=== PATIENT | female | born 1980 | race Caucasian/White ===

== ENCOUNTER 2024-07-18 21:49 | Inpatient (IN) | payer OTHER, SELFPAY ==
[2024-07-18 15:31] VITALS: BP 141/94
[2024-07-18] MEDS: TYLENOL 1000 MG PO (15:41)
[2024-07-18 16:17] LABS: % Basophils 0.5 % (0-2); % Eosinophils 2.7 % (0-6); % Lymphocytes 15.5 % (20.5-51.1); % Monocytes 4.6 % (1.7-9.3); % Neutrophils 75.7 % (42.2-75.2); Absolute Basophils 0.1 10^3/uL (0-0.2); Absolute Eosinophils 0.3 10^3/uL (0-0.7); Absolute Immature Granulocytes 0.1 10^3/uL (0-0.05); Absolute Lymphocytes 1.4 10^3/uL (1.2-3.4); Absolute Monocytes 0.4 10^3/uL (0.1-0.6); Absolute Neutrophils 7.1 10^3/uL (1.4-6.5); Hemoglobin 12.9 g/dL (12.0-16.0); Mean Corp Hgb Conc. 33.1 g/dL (33.0-37.0); Mean Corpuscular Volume 84.8 fL (81.0-99.0); Nucleated Red Blood Cells % 0 %; Platelet Count 309 10^3/uL (130-400); White Blood Cell Count 9.3 10^3/uL (4.8-10.8)
[2024-07-18 16:26] LABS: Lactic Acid 1.8 mmol/L (0.7-2.0)
[2024-07-18 16:28] LABS: ALT (SGPT) 30 U/L (0-35); AST (SGOT) 26 U/L (14-36); Alkaline Phosphatase 100 U/L (38-126); Blood Urea Nitrogen 12 mg/dl (7-17); Carbon Dioxide 30 mmol/L (22-30); Chloride 91 mmol/L (98-107); Glucose 135 mg/dl (70-99); Potassium 3.3 mmol/L (3.5-5.1); Sodium 131 mmol/L (135-145); Total Bilirubin 0.4 mg/dl (0.2-1.3); Total Protein 7.4 g/dl (6.3-8.2); eGFR > 60.00
[2024-07-18 17:42] VITALS: BMI 48.3
--- NOTE | 2024-07-18 17:58 | ED.GENMED ---
History of Present Illness
<Felisha Tyler NP - Last Filed: 07/18/24 22:46>
General
Chief Complaint: Fever
Source: patient
Exam Limitations: none
Time Seen by Provider: 07/18/24 17:35
Nursing documentation reviewed up to this point in time: agreed with
History of Present Illness
History of Present Illness:
Patient to ED with complaint of fever, headache, neck tightness, low back pain. States she had a dental extraction and bone grafting on . she developed a migraine like headache, pressure behind her eyes. Yesterday fever started.
Reports temp as high as 103. She was placed on amoxicillin after procedure. She was seen in ED in 2012 for similar event. Symptoms at that time followed dental extractions. Diagnosed with meningitis - thought to be viral. Brought to ED tonight
by spouse.
Past History
<Felisha Tyler NP - Last Filed: 07/18/24 22:46>
Past History
ED Past Medical History: Asthma and Other (Murmur, Bronchitis); Negative HTN, Hypercholesterolemia or NIDDM
ED Past Surgical History: (X3)
Social History
Tobacco: Non-smoker
Alcohol: None
Drug: None
Personal:
Living: with family
Employment: Employed
Family History
Family History: Other (Noncontributory)
Review of Systems
<Felisha Tyler NP - Last Filed: 07/18/24 22:46>
Review of Systems
Allergies reviewed?: Yes
All Other Systems: ROS reviewed and negative except as documented in HPI and ROS
Constitutional: Reports fever and fatigue
EENT: Reports other (Dental extraction left upper central incisor with bone grafting.)
Respiratory: Reports no symptoms
Cardiac: Reports no symptoms
ABD/GI: Reports no symptoms
: Reports no symptoms
Musculoskeletal: Reports neck pain and back pain
Skin: Reports no symptoms
Neurological: Reports dizzy, headache and weakness
Psychiatric: Reports no symptoms
Phy Exam
<Felisha Tyler NP - Last Filed: 07/18/24 22:46>
General Physical Exam
General Presentation: well appearing and no apparent distress
General age: appears stated age
General Skin: warm and dry
General Habitus: normal
General Mental: alert
General Hydration: appears well hydrated
ENT Exam
ENT Exam: EOMI, TM's normal, pharynx normal, neck supple and swallowing well
Eye Exam
Eye Exam: PERRL, EOMI, conjunctiva normal and globe normal
Cardiovascular Exam
Cardiovascular Exam: regular rate/rhythm and no edema
Pulmonary Exam
Pulmonary Exam: lungs clear, no respiratory distress and chest non tender
Gastrointestinal Exam
Gastrointestinal Exam: normal bowel sounds, non tender, soft and no organomegaly
Neurological Exam
Neurological Exam: alert, oriented x3, CN II-XII intact, no motor deficits, no sensory deficits, speech normal and normal gait
Musculoskeletal Exam
Musculoskeletal Exam: full ROM, neuro vasc intact and other (Reports neck tightness with rotation )
Skin Exam
Skin Exam: normal color, warm/dry, no rash and no petechia
Psychiatric Exam
Psychiatric Exam: normal mood/affect
Sepsis
<Felisha Tyler NP - Last Filed: 07/18/24 22:46>
Sepsis Screening
Sepsis Assessment: Sepsis Ruled Out
Sepsis Screen
Sepsis Screen: Sepsis Ruled Out
Date: 07/18/24
Time: 22:45
<Nancy Smith MD - Last Filed: 07/19/24 12:44>
Sepsis Screen
Sepsis Screen: Sepsis Ruled Out
Date: 07/19/24
Time: 12:43
Course
<Felisha Tyler, INTEGRATED MARKETING MANAGER - Last Filed: 07/18/24 22:46>
Orders/Labs/Results
Orders:
Orders
07/18/24 Breakfast
Cholesterol Lowering
At Your Request: Full Participation
Cholesterol Lowering: Sodium, 2 Gram
07/18/24 15:36
Electrocardiogram (*1) Urgent
Reason for Study: Other
Other Reason for Exam: Possible Sepsis
Cardiac Monitoring- Treatment ONCE
EKG- Treatment ONCE
IV Insert/Care/Rem.- Treatment PRN
O2 Therapy [RESP] Urgent
Titrate/Wean O2 to maintain O2 sat greater than (%): 93
Special Instructions: TO MAINTAIN CONTINUOUS O2 SATS > OR = 93%
Pulse Ox/cont/shift [RESP] Urgent
Quantity: 1
Special Instructions: CONTINUOUS
07/18/24 15:39
Acetaminophen [Tylenol] 1,000 mg .ROUTE .STK-MED ONE
07/18/24 15:41
Acetaminophen [Tylenol] 1,000 mg PO NOW STA
07/18/24 15:56
C-Reactive Protein Urgent
Comment: ADD ON
Complete Blood Count/With Diff Urgent
Comprehensive Metabolic Panel Urgent
Erythrocyte Sed Rate Urgent
Comment: ADD ON
HCG, Serum Qualitative Screen Urgent
Comment: ADD ON
Lactic Acid Q4H
Comment: ON ICE, CANCEL 2ND ORDER IF FIRST LACTIC ACID LEVEL <2
Blood Culture Urgent
SATHISH Source: Blood/Venous
Specimen Description:
07/18/24 17:43
Urinalysis Reflex To Culture Urgent
Date Specimen was Collected: 07/18/24
Time Specimen was Collected: 17:38
Urine Microscopic Reflex Cult Urgent
Influenza A+B Rapid Molecular Urgent
SATHISH Source: Nasal Swab
Specimen Description:
07/18/24 17:44
Add On- LAB Urgent
Tests Added?: sed rate, CRP
07/18/24 17:58
0.9% Sodium Chloride 1000 ml [Nss] 1,000 ml IV BOLUS
Ketorolac [Toradol] 30 mg IV NOW STA
Ondansetron Injectable [Zofran] 4 mg IV NOW STA
07/18/24 18:02
CT Head W/o Iv Contrast Urgent
Comment:
Reason For Exam: headache, neck pain, fever.
07/18/24 18:03
Add On- LAB Urgent
Tests Added?: HCG serum qualitative
07/18/24 18:29
COVID-19 Antigen Urgent
07/18/24 18:57
Lorazepam [Ativan] 1 mg IV NOW STA
07/18/24 20:49
CefTRIAXone [Rocephin] 1,000 mg IV NOW STA
07/18/24 21:14
Vancomycin [Vancocin] 2,000 mg 0.9% Sodium Chloride 500 ml [Nss] 500 ml IV NOW
07/18/24 21:33
Potassium Chloride [KCl] 40 meq PO NOW STA
07/18/24 21:35
Admit/Transfer Patient As Directed
Co-Sign Provider:
Level of Care: Inpatient admission
Assign to:: Medical/Surgical
Physician / Group: willy
Diagnosis: fever r/o meningitis
Reason for Hospitalization: fever r/o meningitis
Expected length of stay greater than two midnights?: Yes
ELOS- Estimated Length of Stay in days: 3
I certify the patient meets the requirements for IP care: Yes
PRN Pain Medication Management As Directed
May give lesser potent ordered pain med per pt: Yes
preference::
Protocol:: Medication orders for pain may be administered in a
manner that supports deferring to patient preference
when the pt is:
- Requesting an ordered lesser potent pain medication.
Least to most potent pain medications are defined
as: acetaminophen < NSAID < tramadol < opioids
(morphine, oxycodone, hydromorphone).
- Requesting a lesser dose of the same medication IF
ORDERED.
- Requesting a less intrusive route of administration
if both routes are prescribed by the provider (PO <
IV).
07/18/24 21:36
Code Status As Directed
Resuscitation Status: Full Code
07/18/24 21:38
IRAD CONSULT Routine
Consulting Provider: Yovany Guo
Was physician already notified: Yes
Reason for Consult/Procedure: LP
Acknowledgement that appropriate orders are entered: Yes
07/18/24 22:00
Flush (0.9% Sodium Chloride) [Flush (Nss)] See Dose Instructions IV PER PROTOCOL
07/18/24 22:26
Acetaminophen [Tylenol] 650 mg PO Q4HPRN PRN
Bisacodyl [Dulcolax] 10 mg RECTAL [id number] PRN
Docusate W/Senna [Senokot-S] 1 tablet PO BIDPRN PRN
Polyethylene Glycol Powder [Miralax] 17 grams PO DAILYPRN PRN
norethindrone (contraceptive) See Dose Instructions PO HS
07/18/24 22:26
Meningitis Panel, CSF by PCR Routine
SATHISH Source: Csf
Specimen Description:
Activity As Directed
Activity Level: As Tolerated
Pneumatic Compression Sleeves As Directed
Type: Knee high
Vital Signs As Directed
Frequency: Per unit guidelines
DX Deep Vein Thrombosis Video Routine
07/19/24 06:01
Basic Metabolic Panel IN AM
07/19/24 08:00
Sertraline HCl [Zoloft] 50 mg PO DAILY
07/19/24 22:00
CefTRIAXone [Rocephin] 1,000 mg IV Q24H
07/20/24 06:00
Basic Metabolic Panel IN AM
07/21/24 06:00
Basic Metabolic Panel IN AM
Abnormal Lab Results
07/18/24 07/18/24
15:56 17:43
Abs Immat Gran (auto) 0.1 H 10^3/uL
(0-0.05)
Absolute Neuts (auto) 7.1 H 10^3/uL
(1.4-6.5)
Immature Gran % 1.0 H %
(0-0.5)
Neutrophils % 75.7 H %
(42.2-75.2)
Lymphocytes % 15.5 L %
(20.5-51.1)
ESR 48 H mm/hour
(0-20)
Sodium 131 L mmol/L
(135-145)
Potassium 3.3 L mmol/L
(3.5-5.1)
Chloride 91 L mmol/L
(98-107)
Glucose 135 H mg/dl
(70-99)
C-Reactive Protein 64.20 H mg/L
(0.0-10.00)
Leukocyte Esterase Rfl Trace A
(Negative)
07/18/24 15:56
07/18/24 15:56
Vital Signs
Initial and Last Documented VS:
Initial Vital Signs
Temp Pulse Resp BP Pulse Ox
103 F H 90 18 141/94 100
07/18/24 15:31 07/18/24 15:31 07/18/24 15:31 07/18/24 15:31 07/18/24 15:31
Last Documented Vital Signs
Temp Pulse Resp BP Pulse Ox
98.7 F 75 16 147/81 95
07/19/24 12:00 07/19/24 11:10 07/19/24 11:10 07/19/24 11:10 07/19/24 10:30
<Nancy Smith MD - Last Filed: 07/19/24 12:44>
Orders/Labs/Results
Orders:
Orders
07/18/24 Breakfast
Cholesterol Lowering
At Your Request: Full Participation
Cholesterol Lowering: Sodium, 2 Gram
07/18/24 15:36
Electrocardiogram (*1) Urgent
Reason for Study: Other
Other Reason for Exam: Possible Sepsis
Cardiac Monitoring- Treatment ONCE
EKG- Treatment ONCE
IV Insert/Care/Rem.- Treatment PRN
O2 Therapy [RESP] Urgent
Titrate/Wean O2 to maintain O2 sat greater than (%): 93
Special Instructions: TO MAINTAIN CONTINUOUS O2 SATS > OR = 93%
Pulse Ox/cont/shift [RESP] Urgent
Quantity: 1
Special Instructions: CONTINUOUS
07/18/24 15:39
Acetaminophen [Tylenol] 1,000 mg .ROUTE .STK-MED ONE
07/18/24 15:41
Acetaminophen [Tylenol] 1,000 mg PO NOW STA
07/18/24 15:56
C-Reactive Protein Urgent
Comment: ADD ON
Complete Blood Count/With Diff Urgent
Comprehensive Metabolic Panel Urgent
Erythrocyte Sed Rate Urgent
Comment: ADD ON
HCG, Serum Qualitative Screen Urgent
Comment: ADD ON
Lactic Acid Q4H
Comment: ON ICE, CANCEL 2ND ORDER IF FIRST LACTIC ACID LEVEL <2
Blood Culture Urgent
SATHISH Source: Blood/Venous
Specimen Description:
07/18/24 17:43
Urinalysis Reflex To Culture Urgent
Date Specimen was Collected: 07/18/24
Time Specimen was Collected: 17:38
Urine Microscopic Reflex Cult Urgent
Influenza A+B Rapid Molecular Urgent
SATHISH Source: Nasal Swab
Specimen Description:
07/18/24 17:44
Add On- LAB Urgent
Tests Added?: sed rate, CRP
07/18/24 17:58
0.9% Sodium Chloride 1000 ml [Nss] 1,000 ml IV BOLUS
Ketorolac [Toradol] 30 mg IV NOW STA
Ondansetron Injectable [Zofran] 4 mg IV NOW STA
07/18/24 18:02
CT Head W/o Iv Contrast Urgent
Comment:
Reason For Exam: headache, neck pain, fever.
07/18/24 18:03
Add On- LAB Urgent
Tests Added?: HCG serum qualitative
07/18/24 18:29
COVID-19 Antigen Urgent
07/18/24 18:57
Lorazepam [Ativan] 1 mg IV NOW STA
07/18/24 20:49
CefTRIAXone [Rocephin] 1,000 mg IV NOW STA
07/18/24 21:14
Vancomycin [Vancocin] 2,000 mg 0.9% Sodium Chloride 500 ml [Nss] 500 ml IV NOW
07/18/24 21:33
Potassium Chloride [KCl] 40 meq PO NOW STA
07/18/24 21:35
Admit/Transfer Patient As Directed
Co-Sign Provider:
Level of Care: Inpatient admission
Assign to:: Medical/Surgical
Physician / Group: willy
Diagnosis: fever r/o meningitis
Reason for Hospitalization: fever r/o meningitis
Expected length of stay greater than two midnights?: Yes
ELOS- Estimated Length of Stay in days: 3
I certify the patient meets the requirements for IP care: Yes
PRN Pain Medication Management As Directed
May give lesser potent ordered pain med per pt: Yes
preference::
Protocol:: Medication orders for pain may be administered in a
manner that supports deferring to patient preference
when the pt is:
- Requesting an ordered lesser potent pain medication.
Least to most potent pain medications are defined
as: acetaminophen < NSAID < tramadol < opioids
(morphine, oxycodone, hydromorphone).
- Requesting a lesser dose of the same medication IF
ORDERED.
- Requesting a less intrusive route of administration
if both routes are prescribed by the provider (PO <
IV).
07/18/24 21:36
Code Status As Directed
Resuscitation Status: Full Code
07/18/24 21:38
IRAD CONSULT Routine
Consulting Provider: Yovany Guo
Was physician already notified: Yes
Reason for Consult/Procedure: LP
Acknowledgement that appropriate orders are entered: Yes
07/18/24 22:00
Flush (0.9% Sodium Chloride) [Flush (Nss)] See Dose Instructions IV PER PROTOCOL
07/18/24 22:26
Acetaminophen [Tylenol] 650 mg PO Q4HPRN PRN
Bisacodyl [Dulcolax] 10 mg RECTAL [id number] PRN
Docusate W/Senna [Senokot-S] 1 tablet PO BIDPRN PRN
Polyethylene Glycol Powder [Miralax] 17 grams PO DAILYPRN PRN
norethindrone (contraceptive) See Dose Instructions PO HS
07/18/24 22:26
Meningitis Panel, CSF by PCR Routine
SATHISH Source: Csf
Specimen Description:
Activity As Directed
Activity Level: As Tolerated
Pneumatic Compression Sleeves As Directed
Type: Knee high
Vital Signs As Directed
Frequency: Per unit guidelines
DX Deep Vein Thrombosis Video Routine
07/19/24 06:01
Basic Metabolic Panel IN AM
07/19/24 08:00
Sertraline HCl [Zoloft] 50 mg PO DAILY
07/19/24 22:00
CefTRIAXone [Rocephin] 1,000 mg IV Q24H
07/20/24 06:00
Basic Metabolic Panel IN AM
07/21/24 06:00
Basic Metabolic Panel IN AM
Abnormal Lab Results
07/18/24 07/18/24
15:56 17:43
Abs Immat Gran (auto) 0.1 H 10^3/uL
(0-0.05)
Absolute Neuts (auto) 7.1 H 10^3/uL
(1.4-6.5)
Immature Gran % 1.0 H %
(0-0.5)
Neutrophils % 75.7 H %
(42.2-75.2)
Lymphocytes % 15.5 L %
(20.5-51.1)
ESR 48 H mm/hour
(0-20)
Sodium 131 L mmol/L
(135-145)
Potassium 3.3 L mmol/L
(3.5-5.1)
Chloride 91 L mmol/L
(98-107)
Glucose 135 H mg/dl
(70-99)
C-Reactive Protein 64.20 H mg/L
(0.0-10.00)
Leukocyte Esterase Rfl Trace A
(Negative)
07/18/24 15:56
07/18/24 15:56
Vital Signs
Initial and Last Documented VS:
Initial Vital Signs
Temp Pulse Resp BP Pulse Ox
103 F H 90 18 141/94 100
07/18/24 15:31 07/18/24 15:31 07/18/24 15:31 07/18/24 15:31 07/18/24 15:31
Last Documented Vital Signs
Temp Pulse Resp BP Pulse Ox
98.7 F 75 16 147/81 95
07/19/24 12:00 07/19/24 11:10 07/19/24 11:10 07/19/24 11:10 07/19/24 10:30
<Felisha Tyler INTEGRATED MARKETING MANAGER - Last Filed: 07/18/24 22:46>
*Radiology
Radiology exam reviewed: radiology read reviewed
*Pulse Oximetry
Patient hypoxic: no
*Critical Care Note
Total Time (30-74mins, 75-104mins- exclusive of procedures): Not Applicable
<Felisha Tyler NP - Last Filed: 07/18/24 22:46>
Update Note
Update Note:
Patient to ED with complaint of fever, headache, fatigue. Had dental extraction with bone grafting this week. Symptoms began 2 days after. SHe is currently prescribed amoxicillin prophylactically for her dental procedure. SHe had a similar event
in 2012 after dental extraction. Admitted here for meningitis, however thought to be viral. Has had no issues since. Labs, CT, exam results reviewed with Dr. Smith who also evaluated this patient. CT reveals Chiari Malformation. Neurology
recommends holding off on LP. Recommends admission tonight with brain MRI in AM followed by LP at that time. Will admit to hospitalists service. Antibiotics started in dept.
ED Attending Note
<Felisha Tyler NP - Last Filed: 07/18/24 22:46>
-
Portions of this chart may have been created with voice recognition software.� Occasional wrong word or��sound alike� substitutions may have occurred due to the inherent limitations of voice recognition software.
<Nancy Smith MD - Last Filed: 07/19/24 12:44>
ED Attending Note
Patient seen and examined by attending physician: Yes
I performed the substantive portion of visit, reviewed & personally made and approve the management plan that is documented in note by myself or WILLIAN.: Yes
ED Attending Note:
43-year-old female states that she had a tooth extraction on Saturday, started on amoxicillin. On she developed a headache, and then yesterday she developed an associated fever. She describes continued fever, headache, neck pain,
dizziness. She also has bodyaches. She denies photophobia, numbness, tingling, trouble swallowing, mouth pain, chest pain, shortness of breath. Patient states symptoms today are similar to when she was diagnosed with viral meningitis 11 years ago
status post tooth extraction. On exam, patient is tired appearing but pleasant and awake. No objective photophobia noted. Oropharynx exam normal. Tooth #9 extraction site without secondary infection. Patient is able to flex and extend neck but
reports pain while doing. Given fever, headache neck pain and similar symptoms, recommends LP. Discussed with patient risks and benefits and she is in agreement.
8:[address] shows 'cerebellar tonsillar ectopia'. I have been in discussions with neurology and radiology to help determine if this is a potential contraindication to an LP.Neurologist states that cerebellar tonsillar ectopia suggest low CSF which
increases the risk of herniation. She recommends that we treat clinically i.e. give antibiotics, and ultimately obtain an MRI, LP via IR. We will start antibiotics now and make arrangements for admission and continued care.
Discharge Plan
Departure
Patient Disposition: Admit
Date of Disposition: 07/18/24
Time of Disposition: 20:57
Presentation/result/management discussed w/ accepting MD/DO: Hospitalist
Condition: Fair
Covid-19: Not Applicable
Discharge Problem:
Fever, Headache
Interventions
Interventions:
*Risk Screen - Suicide Last Done: 07/18/24 15:31
*General Assessment Last Done: 07/18/24 15:31
*Neglect/Abuse Screening Last Done: 07/18/24 15:31
ED- Fall Risk Assessment Last Done: 07/18/24 17:25
*ED COVID-19 Vaccine History Last Done: 07/18/24 17:40
*Nursing Disposition Last Done: 07/18/24 22:24
ED- Neurological Assessment Last Done: 07/18/24 17:41
ED-Skin Assessment Last Done: 07/18/24 17:43
Discharge Date and Time
Discharge Date/Time: 07/18/24 22:25
[2024-07-18] MEDS: NSS 1000 IV (18:17)
[2024-07-18] MEDS: ZOFRAN 4 MG IV (18:18)
[2024-07-18] MEDS: TORADOL 30 MG IV (18:18)
[2024-07-18 18:21] VITALS: BP 125/74
[2024-07-18 18:21] LABS: Erythrocyte Sed Rate 48 mm/hour (0-20)
[2024-07-18 18:22] LABS: HCG, Serum Qualitative Screen Negative
[2024-07-18 18:49] LABS: COVID-19 Antigen Negative (Negative)
[2024-07-18 19:00] VITALS: BP 116/69
[2024-07-18] MEDS: ATIVAN 1 MG IV (19:27)
[2024-07-18 20:00] VITALS: BP 128/81
[2024-07-18 21:00] VITALS: BP 128/76
--- NOTE | 2024-07-18 21:07 | HPS.HSE ---
Family Physician
-
Family Physician: Rachel Oliveros
Chief Complaint
-
fever
SANDOVAL
History of Present Illness
43 year old with PMH for HTN, depression presented to us with fever, headache, neck tightness, low back pain. States she had a dental extraction and bone grafting on . she developed a migraine like headache, pressure behind her eyes.
Yesterday fever started. Reports temp as high as 103. She was placed on amoxicillin after procedure. denied congestion, cough. denied chest pain, sob. denied abdominal pain,n,v,d. denied dysuria or hematuria. patient has hxt of viral meningitis
after the dental procedure in 2012.
Patient received ceftriaxone and vancomycin in ER. Admitting for further management
Medical History
Past Medical History
Past Medical History: Reports Other
Additional Past Medical History:
Hypertension
Anxiety
Asthma
Past Surgical History: Reports Other
Additional Past Surgical History:
Cholecystectomy
Social History
Tobacco: Non-smoker
Alcohol: None
Drug: None
Personal:
Living: With Family
Family History
Family History: Not pertinent
Allergies / Home Medications
Allergies reflects when Allergies were last updated in [facility].
Home Medications with original date entered in [facility]
Allergy/Medication List:
Allergies
Allergy/AdvReac Type Severity Reaction Status Date / Time
No Known Allergies Allergy Verified 07/18/24 15:31
Home Medications
calcium 1 tab PO DAILY 08/23/22
hydrochlorothiazide 25 mg tablet 25 mg PO DAILY 08/23/22
multivitamin 1 tab PO DAILY 08/23/22
norethindrone (contraceptive) 0.35 mg tablet 0.35 mg PO HS 08/23/22
sertraline 50 mg tablet (Zoloft) 50 mg PO DAILY 08/23/22
oxycodone 5 mg tablet 5 mg PO Q4HPRN PRN breakthrough/severe pain #15 tabs 08/29/22
Review of Systems
-
Constitutional: Reports Fever and Chills
EENT: Reports No Symptoms
Respiratory: Reports No Symptoms
Cardiac: Reports No Symptoms
Abdomen/GI: Reports No Symptoms
: Reports No Symptoms
Musculoskeletal: Reports No Symptoms
Skin: Reports No Symptoms
Neurological: Reports Headache
Endocrine: Reports No Symptoms
Hematologic/Lymphatic: Reports No Symptoms
Psych: Reports No Symptoms
Physical Exam
Vital Signs
Vital Signs
Temp Pulse Resp BP Pulse Ox
103 F H 85 22 128/81 96
07/18/24 15:31 07/18/24 20:15 07/18/24 20:15 07/18/24 20:00 07/18/24 20:15
Physical Exam
General: Well Developed, Well Nourished and No Apparent Distress
HEENT: NormoCephalic, Moist mucous membranes and Atraumatic
Respiratory: Clear
Cardiac: S1/S2 and Regular Rhythm; No Murmur or Rub
GI: Soft, Non Tender, Non Distended and Normal Bowel Sounds; No Organomegaly
Rectal: Deferred by Provider
Musculoskeletal: No Clubbing, No Cyanosis and No Edema
Skin: No Rash
Neuro: AO x 3 and Nonfocal/grossly intact
Psych: Calm
Laboratory Results
-
07/18/24 15:56
07/18/24 15:56
Laboratory Results
Lactic Acid 1.8 mmol/L (0.7-2.0) 07/18/24 15:56
Total Bilirubin 0.4 mg/dl (0.2-1.3) 07/18/24 15:56
AST 26 U/L (14-36) 07/18/24 15:56
ALT 30 U/L (0-35) 07/18/24 15:56
Alkaline Phosphatase 100 U/L (38-126) 07/18/24 15:56
Data Reviewed
-
CT Scan: Report Reviewed by me
Lab Data: Labs Reviewed by me
Impression/Plan
-
#Headache r/o Meningitis
-obtain MRI
-IR consulted for LP tomorrow
-ESR 48,CRp 64.20
-head CT with Cerebellar tonsillar ectopia.
-COVID/flu negative
-Blood culture sent from ER
-iV ceftriaxone and vano continued
-neurology consulted
#hyponatremia/Hypokalemia likely from hctz
-na 131, k 3.3
-replated with kcl, received normal saline in ER
-BMP in am
-hold hctz
#essential HTN
-ctm
#depression
-sertraline continued
#DVT Prophylaxis
-scd
#CODE status
-full code
[2024-07-18] MEDS: ROCEPHIN 1000 MG IV (21:24)
[2024-07-18] MEDS: VANCOCIN 540 MG IV (21:24)
--- NOTE | 2024-07-18 21:34 | W.PN.UPDATE ---
Update Note
Progress Note Update
Patient seen in conjunction with MIGEL. I concur with findings on history and physical. I agree with the assessment and plan as stated.
This is a 43-year-old female was past medical history significant for hypertension, anxiety, asthma and obesity who presents to the emergency department a few days status post extraction of left upper incisors with a fever and headache.
Patient denies any symptoms prior to the procedure. She reported that the day following the procedure she started having a headache that she describes to be in the back of her head radiating to her neck and down to lower back. She also reports
headache in the peritoneal and temporal areas and in the back of her eyes. The following day she started having fevers chills and sweats. She reports worsening pain with neck movement. She reports mild nausea but no vomiting. Patient denies
having any sore throat. She denies any recent cough cold or flulike symptoms. She denies any shortness of breath or dyspnea on exertion. She denies any urinary symptoms. She is able to ambulate without worsening pain. Patient denies any other
recent travels, procedures. She reports sick contacts with children with URI symptoms. She has been on amoxicillin for the procedure. She reported that she had a fractured tooth that was extracted without any evidence of abscess. She denies any
swelling or pain and mild.
Patient denies any rash.
In the emergency department patient was febrile to 103, she was normotensive at 128/80 with a pulse of 55. She was satting 96% on room air. CT of the head shows no acute intracranial process. COVID test was negative. Influenza was negative. CBC
was unremarkable. Electrolytes and BUN/creatinine were also unremarkable. Sodium was 131. She had mildly elevated ESR and moderately elevated CRP 264.
On my examination she was alert and oriented x 3, no focal neurological deficits, no signs of encephalopathy. There was no nuchal rigidity, negative chronic low presents K. She had no focal tenderness in her neck or spine. Oral cavity shows no
abscess drainage erythema or exudate. Neck was supple and there was no significant adenopathy. Lungs were clear to auscultation. There was no cardiac murmur.
Assessment and plan
Patient with very high fever status post with extraction complicated by headache with concern for meningitis. Patient had a similar episode about 12 years ago with headache and fever status post 2 dental procedure requiring LP at that time. She
was found to have a viral meningitis. Neurology consulted.
1. Fever - Source unknown with concern for meningitis. No unusual risk factors.
- admit to med/surg
- mri in am
- IR consult for LP - OP, CSF analysis for glucose, protein, cell count, gm stain, culture and viral pcr
- blood cultures sent
- u/a and urine culture
- neurology consult
- ID consultation
- empiric abx, not immunocompromised, age < 50, start IV Vanc/Ceftriaxone.
DVT PPX - heparin sq
Code status - full code
[2024-07-18] MEDS: KCL 40 MEQ PO (21:37)
[2024-07-18 21:47] LABS: Urine Albumin Trace (Neg - Trace); Urine Bilirubin Negative (Negative); Urine Character Clear (Clear); Urine Color Yellow; Urine Glucose Negative (Negative); Urine Ketone Negative (Negative); Urine Leukocyte Trace (Negative); Urine Nitrite Negative (Negative); Urine Occult Blood Negative (Negative); Urine Urobilinogen Negative (Neg - 1+)
[2024-07-18 22:15] LABS: Urine Red Blood Cell 0-2 /HPF (0-2)
[2024-07-18] MEDS: TYLENOL 650 MG PO (22:50)
[2024-07-18 22:54] VITALS: BP 139/85
--- NOTE | 2024-07-18 23:10 | PHA.VAN.IN ---
Assessment
- Assessment
Renal Function: Appears similar to baseline
Maximum Temperature: 103
Minimum Temperature: 100.3
Concomitant Antimicrobials: Ceftriaxone
AUC Dosing Plan
- Dosing Variables
Dosing Weight (kg): 142.9
Dosing CrCl (ml/min): 119
Vd coefficient (L/kg): 0.5
- Empiric Dosing
Initial / Loading Dose: 2000mg on 07/18
Maintenance Regimen: 1000mg Q8H starting on 07/19 @0600
Estimated AUC (mcg*h/mL): 428
Estimated Peak (mcg*h/mL): 24.9
Estimated Trough (mcg/ml): 12.1
Estimated Half Life (H): 6.7
- Monitoring
No levels ordered at this time: Consider levels in next few days
Pharmacokinetics Vancomycin I
- -
Patient Age: 43
Patient Sex: Female
Vancomycin Day #: 1
Indication: Other
Requesting Provider: Dr. Brady
Pertinent Antimicrobial Allergies:
NKDA
Height / Weight:
Height 5 ft 7.75 in
Actual Weight 142.882 kg
Pertinent Past Medical History: Viral meningitis after dental procedure in 2012
- Vital Signs / Lab Results
Temp Pulse Resp BP Pulse Ox
100.3 F 101 19 139/85 98
07/18/24 22:54 07/18/24 22:54 07/18/24 22:54 07/18/24 22:54 07/18/24 22:54
Lab Results - Hematology
07/18/24
15:56
WBC 9.3
Lab Results - Chemistry
07/18/24
15:56
BUN 12
Creatinine 0.9
Albumin 4.0
07/18/24 07/18/24
15:45 15:56
Lactic Acid Cancelled 1.8
Lab Results - Urine
07/18/24
17:43
Urine Nitrite (Reflex) Negative
Leukocyte Esterase Rfl Trace A
Urine WBC (Reflex) 6-10
Ur Squamous Epith Cells 11-15
Microbiology Results
07/18/24 17:43 Influenza Types A & B (SULMA) - Final
Nasal Swab Negative for Influenza A & B, NAAT
Negative results must be combined with clinical observations
and patient history.
Nucleic Acid Amplification test (NAAT)performed on the
[employer] NOW platform.
--- NOTE | 2024-07-18 23:27 | PTCARENOTE ---
Pt admitted to rm 324 from ED. Ambulated to bed from stretcher. Temp 103 upon arrival, PRN tylenol administered. Vanco currently infusing via LAC INT. Pt c/o neck pain and headache 01/07 sensitive to light. Room darkened and HOB lowered.
control sent to pharmacy for label. Pt oriented to room and POC. Call william in reach and explained, able to make needs known.
[2024-07-19] MEDS: TYLENOL 325 MG PO ×2 (00:23→06:23)
[2024-07-19] MEDS: NON-FORMULARY ITEM PO (00:29)
--- NOTE | 2024-07-19 00:56 | PTCARENOTE ---
Pt continues with 103 temp. PATIENT SUPPORT REPRESENTATIVE notified, ordered 500mg tylenol and cooling blanket. Pt set up on cooling blanket with probe, auto control for goal temp 100.4.
[2024-07-19] MEDS: VANCOCIN 200 IV ×3 (05:03→22:08)
[2024-07-19] MEDS: TYLENOL 650 MG PO ×3 (05:03→20:11)
[2024-07-19 07:20] LABS: Blood Urea Nitrogen 16 mg/dl (7-17); Carbon Dioxide 30 mmol/L (22-30); Chloride 93 mmol/L (98-107); Estimated Creatinine Clearance > 125 ml/min; Glucose 125 mg/dl (70-99); Potassium 3.8 mmol/L (3.5-5.1); Sodium 131 mmol/L (135-145); eGFR > 60.00
[2024-07-19] MEDS: ZOLOFT 50 MG PO (07:40)
[2024-07-19 08:00] VITALS: BP 125/74
--- NOTE | 2024-07-19 08:21 | PHA.VAN.FU ---
Vancomycin Assessment / Plan
- Assessment
Renal Function: Stable
In the past 24 hrs, patient has been: Febrile (TMAX 103.2 F (07/19/24 @0001))
Concomitant Antimicrobials: CEFTRIAXONE
- Dosing Plan
Continue: VANCO 1000MG Q8H
- Monitoring Plan
No level(s) ordered at this time: CONSIDER LEVEL IN NEXT FEW DAYS
- Follow Up
Pharmacy will continue to follow.
Vancomycin Follow UP
- -
Patient Age: 43
Patient Sex: Female
Vancomycin Day #: 2
Indication: Other
Requesting Provider: Dr. Brady
Pertinent Antimicrobial Allergies:
NKDA
Height / Weight:
Height 5 ft 7.75 in
Actual Weight 142.882 kg
Pertinent Past Medical History: Viral meningitis after dental procedure in 2012
- Vital Signs / Lab Results
Temp Pulse Resp BP Pulse Ox
101.6 F H 73 20 125/74 96
07/19/24 08:00 07/19/24 08:00 07/19/24 08:00 07/19/24 08:00 07/19/24 08:00
Lab Results - Hematology
07/18/24
15:56
WBC 9.3
Lab Results - Chemistry
07/18/24 07/19/24
15:56 06:01
BUN 12 16
Creatinine 0.9 0.8
Estimated Creat Clear > 125
Albumin 4.0
07/18/24 07/18/24
15:45 15:56
Lactic Acid Cancelled 1.8
Lab Results - Urine
07/18/24
17:43
Urine Nitrite (Reflex) Negative
Leukocyte Esterase Rfl Trace A
Ur Squamous Epith Cells 11-15
Microbiology Results
07/18/24 17:43 Influenza Types A & B (SULMA) - Final
Nasal Swab Negative for Influenza A & B, NAAT
Negative results must be combined with clinical observations
and patient history.
Nucleic Acid Amplification test (NAAT)performed on the
[employer] NOW platform.
--- NOTE | 2024-07-19 09:13 | W.PN.HOSP.TC ---
Addendum entered and electronically signed by Katherine Ellis MD 07/19/24 09:35:
d/w Radiology and ok to proceed with LP. No reported hydrocephalus. cancel Neuro consult.
Original Note:
Today's Communication/Plan
-
await formal Neuro consult; regarding risk profile for pursuing LP
continue empiric meningitis treatment; ID consult
Assessment / Plan
Assessment / Plan
Assessment:
Headache, fevers
- concern for meningitis post-dental procedure; prior history of viral meningitis in [address]
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
- MRI w/wo contrast: pending
- Neurology and ID consulted
- Neurology states via tiger text that CT findings would make LP high risk; await formal consult
- ID consulted; on empiric Vanc/Rocephin. Treat clinically. Follow cultures.
- fever control with prn Tylenol, cooling machine
Hyponatremia
Hypokalemia
- in setting of HCTZ
- hold
- monitor BMP
- replace K prn
Essential HTN
- holding HCTZ
Depression
- continue Zoloft
DVT ppx: SCDs
Code: Full
Anticipated Discharge: > 48 hours
Subjective/Interval History
-
Date of Service: July 19, 2024
reports headache, fever on cooling machine
Objective Data
-
Labs:
Laboratory Results
07/19/24
06:01
Sodium 131 L
Potassium 3.8
Chloride 93 L
Carbon Dioxide 30
BUN 16
Creatinine 0.8
Glucose 125 H
Calcium 8.0 L
Vital Signs:
Vital Signs
Temp Pulse Resp BP Pulse Ox
101.6 F H 73 20 125/74 96
07/19/24 08:00 07/19/24 08:00 07/19/24 08:00 07/19/24 08:00 07/19/24 08:00
I&O
07/18/24 07/19/24 07/20/24
06:59 06:59 06:59
Intake Total 480 / 480
Balance 480 / 480
Physical Exam
-
General: No Apparent Distress
HEENT: Normocephalic and Atraumatic
Respiratory: Negative Wheezes
Cardiac: Regular Rhythm and S1/S2
GI: Soft
Genito-urinary: No Costovertebral Tender
Neuro: AO x 3
Psych: Calm
Data Reviewed
-
Total Time Spent with Patient (in minutes): 51
Labs: Labs Reviewed by me
[2024-07-19] MEDS: STERILE WATER FOR INJECTION 20 ML IV ×2 (10:19→20:11)
[2024-07-19] MEDS: ROCEPHIN 2000 MG IV ×2 (10:19→20:11)
[2024-07-19 10:30] VITALS: BP 159/82; BP_SYST 82
--- NOTE | 2024-07-19 10:31 | CON.ID ---
Consultation
-
Date/Time Consultation Requested: 07/18/2024 2300
Date/Time Consultation Performed: 07/19/2024 1015
Requesting Provider: Hallie Valadez
Performing Provider: Dr. Brady
Reason for Consultation: Fever; recent dental extraction
Chief Complaint / Past History
History of Present Illness
Hannah Carroll is a 43-year-old female being evaluated at the request of Hallie Valadez regarding fever and recent dental extraction. History is obtained from chart review, along with patient interview.
The patient has a significant past medical history of obesity and HTN and reports that 4 days ago she had her upper left front tooth extracted at her dentist office. Following the extraction she was placed on a course of amoxicillin. The following
day she developed some headache, and 2 days ago she developed fever that over the past 48 hours has gone as high as 103 degrees. She additionally has continued to have a headache which is described in the front, with pain also extending to her neck
area and down her back. Additionally, she reports that she developed 'meningitis' (reportedly viral) following a remote tooth extraction. The patient reports that her daughter has a runny nose, but no other sick contacts. The patient denies any
significant cough. She denies significant discomfort at the tooth extraction site.
Past History
Additional Past Medical History:
HTN
Obesity
Dyslipidemia
Additional Past Surgical History:
x 3
Prior dental extractions
Allergy History:
No Known Allergies Allergy (Verified 07/18/24 15:31)
Medications Reviewed: Yes
Current Antibiotics:
Ceftriaxone
Vancomycin
Social History
Tobacco: Non-Smoker
Alcohol: None
Drug: None
Personal:
Living: With Family
Employment: Not Employed
Family History
Family History: Not Pertinent
Review of Systems
Review of Systems
General: Fever; Negative Change in Appetite
HEENT: Stiff Neck and Headache; Negative Lymphadenopathy, Sinus Problems or Pharyngitis
Cardiovascular: Negative Dyspnea
Gasteroenterology: Negative Nausea or Vomiting
Vital Signs
Temp Pulse Resp BP Pulse Ox
100.9 F H 73 20 125/74 96
07/19/24 09:00 07/19/24 08:00 07/19/24 08:00 07/19/24 08:00 07/19/24 08:00
Physical Exam
Physical Exam
Constitutional: No Acute Distress, Comfortable, Non-toxic and Obese
Head: Normocephalic
Eyes: Pupils Equal, Pupils Round, No Conjunctival Hemorrhage and Sclera Anicteric
Oral: No Thrush, No Ulcers and Other (No tenderness over prior tooth extraction area. No significant facial swelling or evidence of facial cellulitis.)
Cardiovascular: Regular Rate and S1/S2; Negative S3/S4
Pulmonary: Clear; Negative Wheezes or Rales
Gastrointestinal: Soft, Non Tender and Non Distended
Extremities: Edema; Negative Cyanosis or Erythema
Skin: Warm and Dry; Negative Rash or Jaundice
Neurological: Awake and Alert; Negative Meningeal Signs (No nuchal rigidity. Good ROM front to back.)
Psychological: Calm
.
Lab / Diagnostic Study Results
07/18/24 15:56
07/19/24 06:01
Abs Immat Gran (auto) 0.1 10^3/uL (0-0.05) H 07/18/24 15:56
Absolute Neuts (auto) 7.1 10^3/uL (1.4-6.5) H 07/18/24 15:56
Absolute Lymphs (auto) 1.4 10^3/uL (1.2-3.4) 07/18/24 15:56
Absolute Monos (auto) 0.4 10^3/uL (0.1-0.6) 07/18/24 15:56
Absolute Basos (auto) 0.1 10^3/uL (0-0.2) 07/18/24 15:56
Immature Gran % 1.0 % (0-0.5) H 07/18/24 15:56
Neutrophils % 75.7 % (42.2-75.2) H 07/18/24 15:56
Lymphocytes % 15.5 % (20.5-51.1) L 07/18/24 15:56
Monocytes % 4.6 % (1.7-9.3) 07/18/24 15:56
Eosinophils % 2.7 % (0-6) 07/18/24 15:56
Basophils % 0.5 % (0-2) 07/18/24 15:56
ESR 48 mm/hour (0-20) H 07/18/24 15:56
Lactic Acid 1.8 mmol/L (0.7-2.0) 07/18/24 15:56
C-Reactive Protein 64.20 mg/L (0.0-10.00) H 07/18/24 15:56
Ur Squamous Epith Cells 11-15 /LPF (Few) 07/18/24 17:43
Microbiology Results
Micro:
07/18/24 23:18 Nasal Screen MRSA (PCR) - Final
Nose MRSA not detected - performed by PCR methodology.
07/18/24 17:43 Influenza Types A & B (SULMA) - Final
Nasal Swab Negative for Influenza A & B, NAAT
Negative results must be combined with clinical observations
and patient history.
Nucleic Acid Amplification test (NAAT)performed on the
[employer] NOW platform.
07/18/24 15:56 Blood Culture - Pending
Blood/Venous
Imaging:
07/18/2024 CT head without contrast: No acute intracranial abnormalities. No intracranial hemorrhage. No edema or mass effect to suggest neoplasm. No abnormal extra-axial fluid collections. No focal areas of diminished density to suggest infarct.
There is cerebellar tonsillar ectopia. Mastoid air cells and middle ear cavities are clear, as are the visualized paranasal sinuses.
Assessment / Plan
Fever
Headache
S/p recent dental extraction (tooth #9)
Normal white count with mild left shift
Elevated ESR/CRP
Recommendations:
Source of fever unclear at this time. Patient has minimal symptomatology at the site of dental extraction. DDx includes possible reactive sinusitis (although patient has minimal symptomatology), drug fever secondary to amoxicillin or other
medication, intercurrent viral illness, meningitis, other.
Continue with current empiric antibiotics (ceftriaxone, vancomycin).
Patient for LP this a.m. Await results.
Follow white count and temperature curve.
Follow clinical exam.
If LP negative, may need additional imaging of head / sinuses.
Follow blood cultures.
Further recommendations as additional data is returned.
[2024-07-19 11:10] VITALS: BP 147/81
[2024-07-19 11:50] LABS: Spinal Fluid Glucose 50 mg/dl (40-70); Spinal Fluid Protein 173 mg/dl (12-60)
[2024-07-19 11:59] LABS: CSF Tube # 4
[2024-07-19 12:00] LABS: CSF Color Colorless; CSF Tube # Clarity Clear; Red Cell Count/CSF 0 mm^3
[2024-07-19 12:08] LABS: White Blood Cell Count/CSF 243 mm^3 (0-5)
[2024-07-19 12:25] LABS: CSF Clarity Clear; CSF Color Colorless; CSF Tube # 1
[2024-07-19 12:26] LABS: Red Cell Count/CSF 1 mm^3
[2024-07-19 12:31] LABS: White Cell Count/CSF 168 mm^3 (0-5)
[2024-07-19 12:57] LABS: Spinal Fluid Granulocytes 4 %; Spinal Fluid Macrophages 19 %
[2024-07-19 12:58] LABS: Spinal Fluid Lymphocytes 77 %
[2024-07-19 13:45] LABS: CSF Lymphocytes 89 %; Spinal Fluid Macrophages 4 %
[2024-07-19 13:46] LABS: CSF Granulocytes 7 %
[2024-07-19 15:38] VITALS: BP 121/72
[2024-07-19] MEDS: MOTRIN 400 MG PO (20:57)
[2024-07-19] MEDS: NON-FORMULARY ITEM 0.35 MG PO (22:09)
[2024-07-19 23:15] VITALS: BP 98/57
[2024-07-20] MEDS: TYLENOL 650 MG PO ×3 (00:23→08:27)
[2024-07-20] MEDS: VANCOCIN 200 IV (06:29)
[2024-07-20 07:45] VITALS: BP 143/83
[2024-07-20] MEDS: ROCEPHIN 2000 MG IV (07:52)
[2024-07-20] MEDS: STERILE WATER FOR INJECTION 20 ML IV (07:52)
[2024-07-20] MEDS: ZOLOFT 50 MG PO (07:53)
[2024-07-20 08:51] LABS: Hematocrit 38.6 % (37.0-47.0); Hemoglobin 12.6 g/dL (12.0-16.0); Mean Corp Hgb Conc. 32.6 g/dL (33.0-37.0); Mean Corpuscular Hgb 28.1 pg (27.0-31.0); Mean Platelet Volume 9.2 fL (7.4-10.4); Platelet Count 260 10^3/uL (130-400); Red Blood Cell Count 4.49 10^6/uL (4.20-5.40); Red Cell Dist. Width 12.7 % (11.5-14.5); White Blood Cell Count 7.4 10^3/uL (4.8-10.8)
[2024-07-20] MEDS: MOTRIN 600 MG PO (09:28)
[2024-07-20 09:31] LABS: Blood Urea Nitrogen 13 mg/dl (7-17); Calcium 8.7 mg/dl (8.4-10.2); Carbon Dioxide 31 mmol/L (22-30); Chloride 96 mmol/L (98-107); Estimated Creatinine Clearance > 125 ml/min; Glucose 107 mg/dl (70-99); Potassium 3.8 mmol/L (3.5-5.1); Sodium 135 mmol/L (135-145); eGFR > 60.00
--- NOTE | 2024-07-20 13:28 | W.PN.HOSP.TC ---
Today's Communication/Plan
-
symptomatic care
possible d/c in 24hrs
Assessment / Plan
Assessment / Plan
Aseptic meningitis
-Lumbar puncture showing CSF WBC of 243, 89% lymphocytes, total protein 173, glucose 50
-CSF bio fire panel negative for E. coli K-1/haemophilus influenza/Listeria/Neisseria/CMV/Streptococcus/enterovirus/HSV 1�2/human herpes virus 6/human Parechovirus/varicella-zoster/cryptococcus neoformans
-MRI brain showing diffuse leptomeningeal enhancement in line with meningitis
-Discussed with ID and recommended conservative management. Question of possible amoxicillin exposure post dental procedure causing aseptic meningitis
-Continue atenolol with added NSAID use for fever control.
Hyponatremia
Hypokalemia
-in setting of HCTZ
-Resolved and to be resumed from tomorrow morning
Essential HTN
-resume HCTZ from tomorrow
Depression
- continue Zoloft
DVT ppx: SCDs
Code: Full
Anticipated Discharge: Within 24 hours
Subjective/Interval History
-
Date of Service: July 20, 2024
Complain some headache
Having episodes of fever
Objective Data
-
Labs:
Laboratory Results
07/20/24
08:00
WBC 7.4
Hgb 12.6
Hct 38.6
Plt Count 260
Sodium 135
Potassium 3.8
Chloride 96 L
Carbon Dioxide 31 H
BUN 13
Creatinine 0.6
Glucose 107 H
Calcium 8.7
Vital Signs:
Vital Signs
Temp Pulse Resp BP Pulse Ox
99.8 F 80 17 143/83 96
07/20/24 11:59 07/20/24 07:45 07/20/24 07:45 07/20/24 07:45 01/20/25 07:45
I&O
07/19/24 07/20/24 07/21/24
06:59 06:59 06:59
Intake Total 480 / 480 920 / 920 240 / 240
Balance 480 / 480 920 / 920 240 / 240
Review of Systems
-
Respiratory: Reports No Symptoms
Cardiac: Reports No Symptoms
Abdomen/GI: Reports No Symptoms
Physical Exam
-
General: No Apparent Distress and Comfortable
HEENT: Negative Oxygen
Respiratory: Clear to Auscultation
Cardiac: Regular Rhythm and S1/S2; Negative Murmur or Rub
GI: Soft, Nontender, Nondistended and Normal Bowel Sounds
Musculoskeletal: No Edema
Neuro: Awake, Alert, Oriented, No Motor Deficits and Nonfocal/Grossly Intact
Psych: Calm
--- NOTE | 2024-07-20 13:54 | W.PN.ID1 ---
Date of Service
Date of Service: July 20, 2024
Today's Communication
Discontinue further antibiotics.
Assessment / Plan
Fever
Headache
Suspected meningitis (aseptic; ?secondary to medication)
S/p recent dental extraction (tooth #9)
Normal white count with mild left shift
Elevated ESR/CRP
Recommendations:
CSF analysis reveals pleocytosis, although lymphocyte predominance suggesting viral or noninfectious etiology.
There have been case reports of amoxicillin causing aseptic meningitis, but upon further questioning, the patient reports that she has been on amoxicillin or Augmentin in the 12 or so years since her last event. Additionally, she reports that she
has had dental surgery using Novocain in the time between her prior event and now.
Discontinue further
Continue with supportive care.
����������������������������������������������������������
Chief Complaint
-: Other (Meningitis)
Subjective / Review of Systems
Patient seen and examined. Reports feeling somewhat improved today, although still with some headache. Single temperature to 101.4 earlier today.
Vital Signs / Physical Exam
Vital Signs
Vital Signs
Temp Pulse Resp BP Pulse Ox
98.8 F 80 17 143/83 96
07/20/24 13:00 07/20/24 07:45 07/20/24 07:45 07/20/24 07:45 07/20/24 07:45
Physical Exam
Constitutional: No Acute Distress, Comfortable and Non-toxic
Cardiovascular: S1/S2; Negative S3/S4
Pulmonary: Clear; Negative Wheezes or Rales
Gastrointestinal: Soft and Non Tender
Neurological: Awake and Alert; Negative Meningeal Signs
Objective Data
Lab Data
Lab Results
07/20/24 08:00
07/20/24 08:00
ESR 48 mm/hour (0-20) H 07/18/24 15:56
Estimated Creat Clear > 125 ml/min 07/20/24 08:00
Lactic Acid 1.8 mmol/L (0.7-2.0) 07/18/24 15:56
Total Bilirubin 0.4 mg/dl (0.2-1.3) 07/18/24 15:56
AST 26 U/L (14-36) 07/18/24 15:56
ALT 30 U/L (0-35) 07/18/24 15:56
Alkaline Phosphatase 100 U/L (38-126) 07/18/24 15:56
C-Reactive Protein 64.20 mg/L (0.0-10.00) H 07/18/24 15:56
Most recent labs reviewed.
Micro Results:
07/19/24 11:11 Fungal Culture - Preliminary
Csf Culture in progress.
Positive cultures are reported as soon as detected.
Final report to follow in four to five weeks.
07/19/24 11:11 CSF Culture - Preliminary
Csf No Growth After 18-24 Hours
Gram Stain - Preliminary
07/18/24 15:56 Blood Culture - Preliminary
Blood/Venous No Growth in 24 hours- Final report to follow
07/19/24 11:11 Meningitis/Encephalitis Panel (PCR) - Final
Csf
07/18/24 23:18 Nasal Screen MRSA (PCR) - Final
Nose MRSA not detected - performed by PCR methodology.
07/18/24 17:43 Influenza Types A & B (SULMA) - Final
Nasal Swab Negative for Influenza A & B, NAAT
Negative results must be combined with clinical observations
and patient history.
Nucleic Acid Amplification test (NAAT)performed on the
[employer] platform.
Imaging:
07/18/2024 CT head without contrast: No acute intracranial abnormalities. No intracranial hemorrhage. No edema or mass effect to suggest neoplasm. No abnormal extra-axial fluid collections. No focal areas of diminished density to suggest infarct.
There is cerebellar tonsillar ectopia. Mastoid air cells and middle ear cavities are clear, as are the visualized paranasal sinuses.
Care Review
Plan reviewed with: Physician (Hospitalist)
[2024-07-20] MEDS: VANCOCIN IV (14:04)
[2024-07-20 15:00] VITALS: BP 156/90
[2024-07-21 01:10] LABS: C.neoformans Antigen Negative (Negative)
--- NOTE | 2024-07-21 16:54 | W.DCSUMMARY ---
Discharge Summary
Discharge Data
Date of Admission: 07/18/24
Date of Discharge: 07/20/24
-
Pending Results: No
Hospital Course
Discharging Physician : Dr Nitin Souza
Disposition : To home
Primary care physician : Dr Rachel Oliveros
Principal Discharge diagnosis :
Aseptic meningitis
Hyponatremia
Hypokalemia
Chronic Discharge diagnosis :
Essential hypertension
Depression
Hospital Course :
Patient is a 43-year-old female with no mentioned past medical history came to ER for having new onset of fever/headache and back pain. Patient had dental extraction and bone grafting 3 days back, following after patient started to having headache
pressure behind eyes and fever episode. Patient was prescribed amoxicillin post dental procedure. Patient continued to have worsening symptom and came to ER for further evaluation. Patient have history of aseptic meningitis in the past and there
was concern of patient having episode of meningitis. Infection disease physicians and were involved in care and patient underwent lumbar puncture which showed increased total WBC count of 243 with 89% lymphocytes. [employer] CSF panel was negative
for common bacterial/viral pathology. Patient was felt to having repeat episode of aseptic meningitis and ID recommended symptomatic care. Patient was discharged home at this point with plan for patient to follow-up in ID office if continued to
have symptoms.
Also patient had some associated hyponatremia from hydrochlorothiazide use which improved with discontinuation. Patient being resumed back on hydrochlorothiazide and will require to follow-up with primary care physician office for repeat evaluation.
Important imaging findings :
None
Procedure findings :
None
Discharge Plan
-
Patient Disposition: Home (Routine Discharge)
Discharge Diagnosis/Procedures: Aseptic meningitis
Condition: Fair
Diet: Regular
Activity: As tolerated
Driving Restrictions: No driving for 24 hours
Bathing Restrictions: OK to Shower
Referrals:
Abdifatah Brady DO [Active] -
Rachel Oliveros DO [Family Provider] - in one week
Prescriptions:
New
acetaminophen [Tylenol] 325 mg tablet
650 mg PO Q4H PRN (Reason: headache/fever) Qty: 30 0RF
ibuprofen 600 mg tablet
600 mg PO TID PRN (Reason: fever) Qty: 30 0RF
Rx Instructions:
If tyelnol dosent help with headache/fever
Continued
hydrochlorothiazide 25 mg Tablet
25 mg PO DAILY
norethindrone (contraceptive) 0.35 mg Tablet
0.35 mg PO HS
sertraline [Zoloft] 50 mg Tablet
50 mg PO DAILY
multivitamin Tablet
1 tab PO DAILY
albuterol sulfate 90 mcg/actuation Hfa Aerosol Inhaler
2 puff INHALATION QID PRN (Reason: SOB/wheezing)
chlorhexidine gluconate 0.12 % Mouthwash
15 ml BUCCAL BID
loratadine [Claritin] 10 mg Tablet
10 mg PO DAILY PRN (Reason: seasonal allergies)
Discharge Orders:
Discharge Patient (As Directed); Ordered 07/20/24
Ordered By: Nitin Souza
Discharge Date and Time
Discharge Date/Time: 07/20/24 15:23
Print Language: CITIZEN OF [place]
== END 2024-07-20 15:23 | disposition home or self-care (01) | DRG 98 ==
LOC: 3 WEST ACU 21:49
PROVIDERS: Internal Medicine; Nurse Practitioner; Radiology Diagnostic Radiology; Registered Nurse; ADMITTING PHYSICIAN Internal Medicine; ATTENDING PHYSICIAN Hospitalist; CONSULT PHYSICIAN Internal Medicine Infectious Disease; EMERGENCY PHYSICIAN Emergency Medicine; FAMILY PHYSICIAN Family Medicine
PROC: 009U3ZX Drainage of Spinal Canal, Percutaneous Approach, Diagnostic (ICD-10-PCS; 2024-07-19)
DX: G03.0 Nonpyogenic meningitis (principal); E87.1 Hypo-osmolality and hyponatremia; Z68.42 Body mass index [BMI] 45.0-49.9, adult; I10 Essential (primary) hypertension; F32.A Depression, unspecified; E87.6 Hypokalemia; J45.909 Unspecified asthma, uncomplicated; F41.9 Anxiety disorder, unspecified; E66.9 Obesity, unspecified; Z11.52 Encounter for screening for COVID-19; Z86.61 Personal history of infections of the central nervous system; Z98.818 Other dental procedure status
CPT/HCPCS: 62328; 70450; 70553; 80048; 80053; 81003; 81015; 82945; 83605; 84157; 84703; 85025; 85027; 85652; 86140; 87015; 87040; 87070; 87102; 87205; 87327; 87483; 87502; 87641; 87811; 89051; 93005; 94760; 96361; 96365; 96375; 99285; A9585